=== PATIENT | male | born 1980 | race Caucasian/White ===

== ENCOUNTER 2017-12-31 04:32 | Emergency (ER) | payer OTHER ==
[~2017-12-31] VITALS: Ht 167.6 cm; Wt 67.0 kg
[2017-12-31 04:40] VITALS: BP 116/66; PULSE 91; RESP 20; TEMP 97.8; O2SAT 97
[2017-12-31 05:03] LABS: AUTOMATED NEUTROPHIL # 16.3 TH/MM3 (1.8-7.7); BASOPHIL # 0.1 TH/MM3 (0-0.2); BASOPHIL % 0.3 % (0.0-2.0); EOSINOPHIL # 0.3 TH/MM3 (0-0.4); EOSINOPHIL % 1.2 % (0.0-4.0); HEMOGLOBIN 15.2 GM/DL (13.0-17.0); LYMPHOCYTE # 3.4 TH/MM3 (1.0-4.8); MEAN CELL VOLUME 86.5 FL (80.0-100.0); MEAN CORPUSCULAR HEMOGLOBIN 29.8 PG (27.0-34.0); MEAN CORPUSCULAR HGB CONC 34.4 % (32.0-36.0); MEAN PLATELET VOLUME 8.5 FL (7.0-11.0); MONO % 6.6 % (0.0-8.0); MONOCYTE # 1.4 TH/MM3 (0-0.9); NEUT % 75.9 % (16.0-70.0); PLATELET COUNT 283 TH/MM3 (150-450); RED BLOOD COUNT 5.09 MIL/MM3 (4.50-5.90); RED CELL DISTRIBUTION WIDTH 13.8 % (11.6-17.2); WHITE BLOOD COUNT 21.4 TH/MM3 (4.0-11.0)
[2017-12-31 05:43] LABS: ALBUMIN 3.8 GM/DL (3.4-5.0); ALT (GPT) 20 U/L (12-78); AST (GOT) 22 U/L (15-37); BLOOD UREA NITROGEN 13 MG/DL (7-18); CALCIUM 8.9 MG/DL (8.5-10.1); CHLORIDE 101 MEQ/L (98-107); GLOMERULAR FILTRATION RATE 84 ML/MIN (>89); GLUCOSE,RANDOM 84 MG/DL (74-106); SODIUM (NA) 138 MEQ/L (136-145)
[2017-12-31 05:45] LABS: ACETAMINOPHEN LESS THAN 2.0 MCG/ML (10.0-30.0); ALKALINE PHOSPHATASE 70 U/L (45-117); TOTAL BILIRUBIN ADULT 0.3 MG/DL (0.2-1.0); TOTAL PROTEIN 7.3 GM/DL (6.4-8.2)
[2017-12-31 08:13] VITALS: BP 113/69; PULSE 83; RESP 20; O2SAT 100
--- NOTE | 2017-12-31 10:09 | RADRPT ---
EXAM DATE/TIME: 12/31/2017 10:05 [place] COMPARISON: No previous studies available for comparison. INDICATIONS : Cough. MEDICAL HISTORY : Current smoker. SURGICAL HISTORY : None. ENCOUNTER: Initial ACUITY: 1 day PAIN SCORE: 0/10 LOCATION: Bilateral chest FINDINGS: AP and lateral views of the chest demonstrate the lungs to be symmetrically aerated without evidence of mass, infiltrate or effusion. The cardiomediastinal contours are unremarkable. Osseous structure s are intact. CONCLUSION: 1. No acute cardiopulmonary findings. Colby Escoto MD on December 31, 2017 at 10:06 Board Certified Radiologist. This report was verified electronically.
--- NOTE | 2017-12-31 10:11 | PD ---
HPI Chief Complaint: Psychiatric Symptoms Time Seen by Provider: 09:33 Travel History International Travel<30 days: No Contact w/Intl Traveler<30days: No Traveled to known affect area: No History of Present Illness HPI 37-year-old male presents to the emergency room voluntarily for evaluation of suicidal ideation. Patient states he has thoughts of wanting to jump off the bridge. These thoughts have been increasing over the past few days. He has history of wanting to kill himself since he was a young kid. States he has been off and on psychiatric medication since then. He last was prescribed psych meds a few years ago. He is not on any other daily medications. He denies any complaints today. Denies chest pain, shortness of breath, cough, fever, nausea, vomiting, abdominal pain, or upper respiratory infection symptoms. He reports seeing shadows that are telling him to kill himself. Denies homicidal ideation. He denies IV drug use. Patient states he is on his way from [place] to [place] and stopped in [place] to be seen for the suicidal ideations. PFSH Past Medical History Bipolar Disorder: Yes Anxiety: Yes Schizophrenia: Yes Tetanus Vaccination: Unknown Influenza Vaccination: Yes Past Surgical History Surgical History: No Previous Surgery Social History Alcohol Use: No Tobacco Use: Yes Substance Use: No Allergies-Medications (Allergen,Severity, Reaction): Coded Allergies: No Known Drug Allergies (Verified Allergy, Unknown, 12/31/17) Reported Meds & Prescriptions Reported Meds & Active Scripts Active No Active Prescriptions or Reported Medications Review of Systems Except as stated in HPI: all other systems reviewed are Neg Physical Exam Narrative GENERAL: Well-nourished, well-developed male in no acute distress. Afebrile. Ambulatory. SKIN: Focused skin assessment warm/dry. HEAD: Normocephalic. EYES: No scleral icterus. No injection or drainage. NECK: Supple, trachea midline. No JVD or lymphadenopathy. CARDIOVASCULAR: Regular rate and rhythm without murmurs, gallops, or rubs. RESPIRATORY: Breath sounds equal bilaterally. No accessory muscle use. Coarse lung sounds bilaterally. PSYCHIATRIC: No delusional thought processes. He is not responding to internal stimuli. Normal affect. Data Data Last Documented VS Vital Signs Date Time Temp Pulse Resp B/P (MAP) Pulse Ox O2 Delivery O2 Flow Rate FiO2 12/31/17 08:13 83 20 113/69 (84) 100 Room Air 12/31/17 04:40 97.8 Orders Orders Complete Blood Count With Diff (12/31/17 04:33) Comprehensive Metabolic Panel (12/31/17 04:33) Psych Screen (12/31/17 04:33) Drug Screen, Random Urine (12/31/17 04:33) Alcohol (Ethanol) (12/31/17 04:33) Salicylates (Aspirin) (12/31/17 04:33) Tylenol (Acetaminophen) (12/31/17 04:33) Cbc No Diff, Includes Plts (12/31/17 09:34) Chest, Ap & Lat (12/31/17 ) Ed Discharge Order (12/31/17 11:00) Labs Laboratory Tests Test 12/31/17 04:50 12/31/17 08:25 12/31/17 10:25 White Blood Count 21.4 TH/MM3 15.7 TH/MM3 Red Blood Count 5.09 MIL/MM3 4.68 MIL/MM3 Hemoglobin 15.2 GM/DL 14.2 GM/DL Hematocrit 44.0 % 40.3 % Mean Corpuscular Volume 86.5 FL 86.1 FL Mean Corpuscular Hemoglobin 29.8 PG 30.4 PG Mean Corpuscular Hemoglobin Concent 34.4 % 35.3 % Red Cell Distribution Width 13.8 % 13.8 % Platelet Count 283 TH/MM3 249 TH/MM3 Mean Platelet Volume 8.5 FL 8.3 FL Neutrophils (%) (Auto) 75.9 % Lymphocytes (%) (Auto) 16.0 % Monocytes (%) (Auto) 6.6 % Eosinophils (%) (Auto) 1.2 % Basophils (%) (Auto) 0.3 % Neutrophils # (Auto) 16.3 TH/MM3 Lymphocytes # (Auto) 3.4 TH/MM3 Monocytes # (Auto) 1.4 TH/MM3 Eosinophils # (Auto) 0.3 TH/MM3 Basophils # (Auto) 0.1 TH/MM3 CBC Comment DIFF FINAL Differential Comment Blood Urea Nitrogen 13 MG/DL Creatinine 1.00 MG/DL Random Glucose 84 MG/DL Total Protein 7.3 GM/DL Albumin 3.8 GM/DL Calcium Level 8.9 MG/DL Alkaline Phosphatase 70 U/L Aspartate Amino Transf (AST/SGOT) 22 U/L Alanine Aminotransferase (ALT/SGPT) 20 U/L Total Bilirubin 0.3 MG/DL Sodium Level 138 MEQ/L Potassium Level 4.5 MEQ/L Chloride Level 101 MEQ/L Carbon Dioxide Level 32.0 MEQ/L Anion Gap 5 MEQ/L Estimat Glomerular Filtration Rate 84 ML/MIN Salicylates Level 2.7 MG/DL Acetaminophen Level LESS THAN 2.0 MCG/ML Ethyl Alcohol Level LESS THAN 3 MG/DL Urine Opiates Screen POS Urine Barbiturates Screen NEG Urine Amphetamines Screen NEG Urine Benzodiazepines Screen NEG Urine Cocaine Screen POS Urine Cannabinoids Screen POS MDM Medical Decision Making Medical Screen Exam Complete: Yes Emergency Medical Condition: Yes Medical Record Reviewed: Yes Differential Diagnosis Drug intoxication, malingering, suicidal ideation, schizophrenia Narrative Course 37-year-old male presents to the emergency room voluntarily for evaluation of suicidal ideation. Patient is traveling from [place] to [place] and decided to stop in [place] to check in for his suicidal ideations that have been ongoing for the past several days. He has history of the same. Patient is afebrile and well-appearing in the emergency room. Vital signs stable. He denies any physical complaints. Physical exam reveals bilateral coarse lung sounds. Otherwise unremarkable. CBC shows a leukocytosis of 21.4 with a very mild left shift. CMP is completely unremarkable. Toxicology is positive for opiates, cocaine, and cannabinoids. Chest x-ray is negative for acute pulmonary disease. Repeat CBC shows leukocytosis trending down. Patient has no signs of infection. No history of IV drug abuse. He is medically cleared for psychiatric evaluation. The psychiatric nurse practitioner came and evaluated the patient and will transport him to [facility] for his suicidal ideation. He is stable for outpatient follow-up. Diagnosis Primary Impression: Suicidal ideation Referrals: Primary Care Physician Additional Instructions: Follow-up with [facility].. Follow-up with a primary care physician. Return to the emergency room for worsening symptoms. Scripts No Active Prescriptions or Reported Meds Disposition: 01 DISCHARGE HOME Condition: Stable Nilda Peters Dec 31, 2017 10:11
[2017-12-31 10:42] LABS: HEMATOCRIT 40.3 % (39.0-51.0); HEMOGLOBIN 14.2 GM/DL (13.0-17.0); MEAN CELL VOLUME 86.1 FL (80.0-100.0); MEAN CORPUSCULAR HEMOGLOBIN 30.4 PG (27.0-34.0); MEAN CORPUSCULAR HGB CONC 35.3 % (32.0-36.0); MEAN PLATELET VOLUME 8.3 FL (7.0-11.0); PLATELET COUNT 249 TH/MM3 (150-450); RED BLOOD COUNT 4.68 MIL/MM3 (4.50-5.90); RED CELL DISTRIBUTION WIDTH 13.8 % (11.6-17.2); WHITE BLOOD COUNT 15.7 TH/MM3 (4.0-11.0)
--- NOTE | 2017-12-31 11:19 | PD ---
History of Present Illness Chief Complaint: Psychiatric Symptoms Time Seen by Provider: 10:55 Travel History International Travel<30 Days: No Contact w/Intl Traveler<30days: No Known affected area: No Legal Status Legal Status: Voluntary History of Present Illness: 37-year-old single, male presents voluntarily to the emergency department stating that he has "having thoughts of killing himself". Patient reports having an extensive mental health history however, he is unknown to this facility. Reviewed electronic medical record, labs, and discussed patient with staff. Patient was evaluated and his room in the ED with Rhett case assembler present. Patient tearful throughout interview. His speech is clear although, he claims to have "memory loss". He reports "seeing shadows that tell me to hurt myself" and claims that he was going to jump off of a bridge today however, he opted to come to the ED instead. His memory loss seems to be intermittent as he was able to relate to ED staff that he was traveling from [place] to [place]. When asked for background information by psych staff he claimed that he "could not remember anything from before I came here". He additionally reported losing his Social Security disability although he is unable to state why this occurred. He reported that he followed his fiance to this location as she was going to help him recover his disability. Tox screen positive for opioids cocaine and cannabinoids. Patient claims that he does not know how the opioids or cocaine got into his system. Arrangements have been made for patient to be seen at [facility]. He will be he will be transported by hospital transport to their location. [facility] Past Medical History Narrative Medical Medically cleared by ED staff. Bipolar Disorder: Yes Anxiety: Yes Schizophrenia: Yes Tetanus Vaccination: Unknown Influenza Vaccination: Yes Past Surgical History Surgical History: No Previous Surgery Psychiatric History Psychiatric History Claims to have an extensive history. States that he currently takes no medications. History of Inpatient Treatment: Yes (Per patient however, he was unable to give name of the facility or even what state) Guns or firearms in home: No Social History Reports that he is in transit from [place] to [place]. Hx Alcohol Use: No Hx Tobacco Use: Yes Hx Substance Use: No Substance Use Type: Marijuana, Cocaine, Synth Opiates-Pain Pills Hx of Substance Use Treatment: Yes (Per patient, again unable to give details.) Family Psychiatric History Reports that his father committed suicide and had mental illness diagnoses. Allergies-Medications (Allergen,Severity, Reaction): Coded Allergies: No Known Drug Allergies (Verified Allergy, Unknown, 12/31/17) Reported Meds & Prescriptions Reported Meds & Active Scripts Active No Active Prescriptions or Reported Medications Mental Status Examination Appearance: Disheveled Consciousness: Alert Orientation: Person, Date/Time Motor Activity: Normal gait Speech: Unremarkable Language: Adequate Fund of Knowledge: Inadequate Attention and Concentration: Adequate Memory: Impaired (Selectively) Mood: Sad, Irritable Affect: Sad Thought Process & Associations: Other (Selective memory loss and "confusion") Thought Content: Other (Reports that his thoughts are fragmented) Hallucination Type: Auditory, Visual (Reports seeing a "shadow which told him to hurt himself".) Delusion Type: None Suicidal Ideation: Yes (Claims that he no longer wants to live) Suicidal Plan: No (Denies currently) Suicidal Intention: No Homicidal Ideation: No Homicidal Plan: No Homicidal Intention: No Insight: Poor Judgment: Poor MDM Medical Decision Making Medical Record Reviewed: Yes Assessment/Plan 37-year-old single, male who presents voluntarily to the emergency department with complaints of suicidal ideation. Patient is unknown to this facility. Patient speech is clear and organized, although he claims to have selective amnesia with her various staff. His appearance is slightly disheveled and he is tearful throughout the interview. Although he claims to see a "shadow which tells him to kill himself", there is no apparent thought blocking. Tox screen positive for opioids, cocaine and cannabinoids, patient denies use of opioids and cocaine. Per patient, he has a long history of mental illness with multiple inpatient admissions however, he is extremely vague on timeline and locations. He denies having outpatient treatment or taking any psychotropic medications. He claims to have been on Social Security disability for mental illness but states that he "lost it". Again, his memory feels when asked why he lost his disability. He becomes irritable with staff, stating that he is "tired of answering questions". He additionally claims that he "cannot remember anything of my life from before I got here". However, answers to various staff members throughout his visit would not bear that out. Arrangements have been made for patient to be transported by hospital transport to [facility] for further evaluation and treatment as necessary. Orders Orders Complete Blood Count With Diff (12/31/17 04:33) Comprehensive Metabolic Panel (12/31/17 04:33) Psych Screen (12/31/17 04:33) Drug Screen, Random Urine (12/31/17 04:33) Alcohol (Ethanol) (12/31/17 04:33) Salicylates (Aspirin) (12/31/17 04:33) Tylenol (Acetaminophen) (12/31/17 04:33) Cbc No Diff, Includes Plts (12/31/17 09:34) Chest, Ap & Lat (12/31/17 ) Ed Discharge Order (12/31/17 11:00) Results Vital Signs Date Time Temp Pulse Resp B/P (MAP) Pulse Ox O2 Delivery O2 Flow Rate FiO2 12/31/17 08:13 83 20 113/69 (84) 100 Room Air 12/31/17 04:40 97.8 91 20 116/66 (83) 97 Room Air Laboratory Tests Test 12/31/17 04:50 12/31/17 08:25 12/31/17 10:25 White Blood Count 21.4 15.7 Red Blood Count 5.09 4.68 Hemoglobin 15.2 14.2 Hematocrit 44.0 40.3 Mean Corpuscular Volume 86.5 86.1 Mean Corpuscular Hemoglobin 29.8 30.4 Mean Corpuscular Hemoglobin Concent 34.4 35.3 Red Cell Distribution Width 13.8 13.8 Platelet Count 283 249 Mean Platelet Volume 8.5 8.3 Neutrophils (%) (Auto) 75.9 Lymphocytes (%) (Auto) 16.0 Monocytes (%) (Auto) 6.6 Eosinophils (%) (Auto) 1.2 Basophils (%) (Auto) 0.3 Neutrophils # (Auto) 16.3 Lymphocytes # (Auto) 3.4 Monocytes # (Auto) 1.4 Eosinophils # (Auto) 0.3 Basophils # (Auto) 0.1 CBC Comment DIFF FINAL Differential Comment Blood Urea Nitrogen 13 Creatinine 1.00 Random Glucose 84 Total Protein 7.3 Albumin 3.8 Calcium Level 8.9 Alkaline Phosphatase 70 Aspartate Amino Transf (AST/SGOT) 22 Alanine Aminotransferase (ALT/SGPT) 20 Total Bilirubin 0.3 Sodium Level 138 Potassium Level 4.5 Chloride Level 101 Carbon Dioxide Level 32.0 Anion Gap 5 Estimat Glomerular Filtration Rate 84 Salicylates Level 2.7 Acetaminophen Level LESS THAN 2.0 Ethyl Alcohol Level LESS THAN 3 Urine Opiates Screen POS Urine Barbiturates Screen NEG Urine Amphetamines Screen NEG Urine Benzodiazepines Screen NEG Urine Cocaine Screen POS Urine Cannabinoids Screen POS Diagnosis Primary Impression: 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 Follow-up with a primary care physician. Return to the emergency room for worsening symptoms. Prescriptions No Active Prescriptions or Reported Meds Disposition: 01 DISCHARGE HOME Condition: Stable Haritha Garcia Dec 31, 2017 11:19
== END 2017-12-31 12:15 | disposition home or self-care (01) ==
LOC: NEPD 04:32
DX: F19.14 Other psychoactive substance abuse with psychoactive substance-induced mood disorder (principal)
CPT/HCPCS: 71046; 80053; 80307; 85025; 85027; 99284